=== PATIENT | male | born 1990 | race Caucasian/White ===

== ENCOUNTER 2016-07-16 22:04 | Inpatient (IN) | payer MEDICAID ==
[~2016-07-16] VITALS: Ht 160 cm; Wt 64.9 kg
[~2016-07-16 22:04] MED LIST: AMBIEN10 MG PO; CELLCEPT250 MG PO; HYDROCODON-ACE1 EAC7 PO; KLONOPIN0.5 MG PO; NEPHRO-VITE RX1 TAB PO; NORVASC2.5 MG PO; OMEPRAZOLE20 M1 PO; PREDNISONE1 MG PO; PROGRAF0.5 M1 PO; RENAGEL800 MG PO; TEMAZEPAM30 MG PO; TUMS500 MG PO; VIBRAMYCIN 100100 MG PO
[2016-07-17] VITALS (29 sets, daily range): BP systolic 134–179; BP diastolic 76–128; Ht 160 cm; Wt 64.9 kg
[2016-07-17 00:31] LABS: BASOPHILS 0.1 % (0.0-2.0); EOSINOPHILS 0.5 % (0-7); HEMATOCRIT 20.9 % (42.0-54.0); IMMATURE GRANULOCYTES 0.2 % (0-5); LYMPHOCYTES 13.5 % (15-50); MCHC 32.1 g/dL (31.0-37.0); MCV 87.4 fL (80.0-100.0); MEAN PLATELET VOLUME 10.2 fL (7.4-10.4); NEUTROPHILS 81.7 % (40-80); RBC 2.39 10x6/uL (4.20-6.10); RDW 17.8 % (11.5-14.5); WBC 13.8 10x3/uL (4.8-10.8)
[2016-07-17 00:32] LABS: PLATELET COUNT 71 10x3/uL (130-400)
[2016-07-17 00:34] LABS: HEMOGLOBIN 6.7 g/dL (13.5-17.5)
[2016-07-17 00:49] LABS: BILIRUBIN - TOTAL 0.49 mg/dL (0.2-1.3); CREATININE - SERUM 19.8 mg/dL (0.6-1.3); PROTEIN - SERUM 6.2 g/dL (6.4-8.2)
[2016-07-17 00:54] LABS: INR 1.44 (0.85-1.17); PROTIME 17.5 SECONDS (11.6-15.0)
[2016-07-17 00:56] LABS: ANION GAP 38.7 mmol/L (8-16); CARBON DIOXIDE 5.7 mmol/L (21.0-32.0); POTASSIUM - SERUM 7.4 mmol/L (3.5-5.1)
[2016-07-17] MEDS ORDERED: NEURONTIN 300300 MG PO (01:08)
[2016-07-17 01:09] LABS: PLATELET ESTIMATE DECREASED; PLATELET MORPHOLOGY NORMAL PLT MORPH
[2016-07-17] MEDS ORDERED: DESERYL100 MG PO (01:10)
[2016-07-17] MEDS ORDERED: BUTALB-APAP-CA1 EACH PO (01:11)
--- NOTE | 2016-07-17 01:25 | NUR ---
PT RECIEVED. DR CATES AT BEDSIDE. NEW ORDERS RECIEVED. WILL ADM.
--- NOTE | 2016-07-17 02:10 | NUR ---
ASSISTED TO BEDSIDE COMMODE. 300 CC NOEL URINE NOTED.
--- NOTE | 2016-07-17 03:49 | NUR ---
DIALYSIS AT BEDSIDE.
--- NOTE | 2016-07-17 07:15 | NUR ---
REPORT FROM HD NURSE. REMOVED 2960 CC.
[2016-07-17 08:56] LABS: BASOPHILS 0.1 % (0.0-2.0); EOSINOPHILS 0.4 % (0-7); IMMATURE GRANULOCYTES 0.2 % (0-5); MCH 28.1 pg (26.0-34.0); MCHC 33.3 g/dL (31.0-37.0); MEAN PLATELET VOLUME 9.6 fL (7.4-10.4); MONOCYTES 9.4 % (2-11); NEUTROPHILS 75.9 % (40-80); PLATELET COUNT 73 10x3/uL (130-400); RDW 16.7 % (11.5-14.5)
[2016-07-17 09:00] LABS: HEMATOCRIT 29.1 % (42.0-54.0); HEMOGLOBIN 9.7 g/dL (13.5-17.5); MCV 84.3 fL (80.0-100.0); RBC 3.45 10x6/uL (4.20-6.10); WBC 10.1 10x3/uL (4.8-10.8)
[2016-07-17 09:29] LABS: CALCIUM 9.4 mg/dL (8.5-10.1); VANCOMYCIN - RANDOM 2.1 ug/mL (10.0-20.0)
[2016-07-17 09:31] LABS: CREATININE - SERUM 9.5 mg/dL (0.6-1.3)
[2016-07-17 09:34] LABS: ANION GAP 26.3 mmol/L (8-16); CARBON DIOXIDE 19.5 mmol/L (21.0-32.0)
[2016-07-17 09:35] LABS: POTASSIUM - SERUM 2.8 mmol/L (3.5-5.1)
--- NOTE | 2016-07-17 10:46 | NUR ---
LABS CALLED TO [facility]. ORDERS RECIEVED AND CARRIED OUT. SEE MAR.
--- NOTE | 2016-07-17 11:20 | NUR ---
PT STATES HE WANTS TO LEAVE AMA BECAUSE HE IS NOT GETTING HIS KLONOPIN. STATES HE WANTS TO TRANSFER TO [facility] OR LEAVE AMA. INFORMED ON RISKS OF LEAVING AMA INCLUDING . INFORMED THAT TRANSFER TO [facility] WOULD BE A LATERAL TRANSFER AND EMS SERVICES ARE REQUIRED FOR TRANSFER AND THE FEE WOULD NEED TO BE PAID UP FRONT AND OUT OF POCKET. ENCOURAGED PT TO STAY. UPDATED PT ON CURRENT PLAN OF CARE. CASE MANAGEMENT AT BEDSIDE FOR CONVERSATION. WILL GIVE PT TIME TO DISCUSS WITH HIS FAMILY OPTIONS FOR FURTHER TREATMENT.
--- NOTE | 2016-07-17 11:31 | NUR ---
Is the patient Alert and Oriented? Yes 0 * How many steps to enter\exit or inside your home? 15 0 * PCP DOESN'T HAVE ONE. SEE'S DR. BURRELL AT [facility] 0 * Pharmacy [facility] [address] * Preadmission Environment Home with Family 0 * ADLs Independent 0 * Equipment None 0 * List name and contact numbers for known caregivers / representatives who currently or will assist patient after discharge: GRANDFATHER: [phone] GRANDMOTHER: [phone] 0 * Community resources currently utilized None 0 * Please name any agencies selected above. PATIENT RECEIVES DIALYSIS AT [facility] M/W/F 0 * Additional services required to return to the preadmission environment? No 0 * Can the patient safely return to the preadmission environment? Yes 0 * Has this patient been hospitalized within the prior 30 days at any hospital? No PATIENT IS AWAKE AND ALERT. HE STATES HE LIVES AT HOME WITH HIS GRANDPARENTS, CHANTELL AND JESSICA BELLAMY. PATIENT STATES HE DOES NOT HAVE A PCP BUT HE SEES DR. BURRELL AT [facility] FOR DIALYSIS. PATIENT GETS HIS MEDS AT [email or web address] [address]. PATIENT DENIES USE OF ANY EQUIPMENT AND DENIES EVER HAVING HOME HEALTH. HE STATES THERE ARE ABOUT 15 STEPS TO ENTER HIS HOME. NO DISCHARGE NEEDS IDENTIFIED AT THIS TIME.
--- NOTE | 2016-07-17 11:40 | NUR ---
JOB SERVICE CONSULTANT AT BEDSIDE DISCUSSING CARE OPTIONS. INFORMING PT THAT LEAVING IS AGAINST MEDICAL ADVICE AND THE EFFECTS COULD BE DETRIMENTAL TO LIFE. PT STATES THAT HE WILL DISCUSS HIS CHOICE WITH HIS GRANDPARENTS.
--- NOTE | 2016-07-17 11:42 | NUR ---
PATIENT PATHWAYS Patient is from [facility] ([facility]) on a Wednesday/Wednesday/Wednesday 2nd shift (Approx 10:30) Records frowarded to the patient's home unit for discharge. Patient is currently in the ICU. Will cont to monitor for further orders. MILLY PRL
--- NOTE | 2016-07-17 12:13 | NUR ---
SPOKE AT LENGTH WITH PT'S GRANDPARENTS WHO STATE "HE ISN'T LEAVING". GRANDFATHER STATES PT OFTEN JUST "TRIES TO USE LEVERAGE" AND IF WE WOULD JUST "GIVE HIM THAT LORAZEPAM OR CHRONOPIN HE WOULD STOP BEING LIKE THAT" STATES THEY HAVE "NEVER MET OR LAID EYES ON DR. BURRELL" AND THAT HE "IS JUST THE KIDNEY DOCTOR IN NAME" AND "IT SHOULDN'T BE UP TO HIM ON WHAT MEDICINES' THE PT RECIEVES. DR. FLAHERTY NOW AT BEDSIDE SPEAKING WITH PT AND FAMILY.
--- NOTE | 2016-07-17 16:16 | NUR ---
FAMILY NOTIFIED TO BE HERE AT [address] TO SPEAK [address] ARTHUR. INFORMED THEY MAY NEED TO WAIT SOME TIME AT THAT TIME FOR THE VERBALIZES UNDERSTANDING.
--- NOTE | 2016-07-17 18:00 | NUR ---
CARDINE DRIP STARTED PER ORDER.
--- NOTE | 2016-07-17 23:20 | NUR ---
1919-REPORT RECVD. CARE ASSUMED. INITIAL ASSMNT COMPLETED. SEE FLOWSHEET FOR ALL FINDINGS. AWAKE AND AOX4. RESP UNLABORED. O2 AT 2 LPM NC. LUNGS CTA. AFEBRILE. ST ON THE MONITOR. RIGHT GHEST HEMESPLIT CDI. ANURIC. UP TO BSC AD JOAQUINA. BSA X4. HAVING BM. HOB UP. C/L IN REACH. CONT CURRENT POC. 2100- HS MEDS GIVEN. FAMILY AT BEDSIDE. UPDATE GIVEN. VSS. CARDENE GTT FOR HTN IN USE. 2319- REASSESSMENT COMPLETED. SEE FLOWSHEET FOR ALL FINDINGS. NO SIG CHANGES. RESTING WITH NO DISRTRESS. CARDENE GTT IN USE FOR HTN. VSS. ST ON THE MONITOR. AFEBRILE. HOB UP. C/L IN REACH. CONT CURRENT POC.
[2016-07-18] VITALS (65 sets, daily range): BP systolic 125–169; BP diastolic 71–112
--- NOTE | 2016-07-18 01:35 | NUR ---
UP TO BSC AD JOAQUINA. PRN APAP GIVEN FOR HEADACHE. VSS. REMAINS ON CARDENE GTT TITRATION. CONT POC.
--- NOTE | 2016-07-18 03:20 | NUR ---
REASSESSMENT COMPLETED. SEE FLOWSHEET FOR ALL FINDINGS. AWAKE AND AOX4. RESP UNLABORED. O2 AT 2 LPM NC. LUNGS CTA. AFEBRILE. ST ON THE MONITOR. RIGHT GHEST HEMESPLIT CDI. ANURIC. UP TO BSC AD JOAQUINA. BSA X4. PRN APAP AND BUPRINEX IN USE FOR PAIN CONTROL. HOB UP. C/L IN REACH. CONT CURRENT POC.
--- NOTE | 2016-07-18 05:00 | NUR ---
EYES CLOSED. VSS. ST ON THE MONIOTR. VSS. HOB UP. C/L IN REACH. CONT CURRENT POC.
[2016-07-18 05:42] LABS: BASOPHILS 0.5 % (0.0-2.0); EOSINOPHILS 2.6 % (0-7); HEMATOCRIT 28.7 % (42.0-54.0); HEMOGLOBIN 9.7 g/dL (13.5-17.5); IMMATURE GRANULOCYTES 0.2 % (0-5); LYMPHOCYTES 28.9 % (15-50); MCH 28.4 pg (26.0-34.0); MCHC 33.8 g/dL (31.0-37.0); MCV 83.9 fL (80.0-100.0); MEAN PLATELET VOLUME 9.6 fL (7.4-10.4); MONOCYTES 6.6 % (2-11); NEUTROPHILS 61.2 % (40-80); PLATELET COUNT 77 10x3/uL (130-400); RBC 3.42 10x6/uL (4.20-6.10); RDW 16.9 % (11.5-14.5); WBC 6.5 10x3/uL (4.8-10.8)
[2016-07-18 05:52] LABS: PROTIME 14.6 SECONDS (11.6-15.0)
[2016-07-18 05:56] LABS: INR 1.15 (0.85-1.17)
[2016-07-18 06:05] LABS: ALBUMIN 2.5 g/dL (3.4-5.0); ANION GAP 24.8 mmol/L (8-16); BILIRUBIN - DIRECT 0.12 mg/dL (0.00-0.30); BILIRUBIN - INDIRECT 0.39 mg/dL (0.00-1.00); BILIRUBIN - TOTAL 0.51 mg/dL (0.2-1.3); CALCIUM 8.5 mg/dL (8.5-10.1); PROTEIN - SERUM 6.3 g/dL (6.4-8.2)
[2016-07-18 06:06] LABS: POTASSIUM - SERUM 3.8 mmol/L (3.5-5.1)
--- NOTE | 2016-07-18 07:00 | NUR ---
REPORT RECEIVED, PATIENT IN RIGHT LATERAL POSITION, SNORING. ASSESSMENT COMPLETED AT THIS TIME. PATIENT DID OPEN EYES AND NOD TO THIS NURSE DURING ASSESSMENT, BUT NO VERBAL COMMUNICATIONS WAS MADE. HE QUICKLY DOZED BACK OFF. NO VISUAL CUES OF DISTRESS NOTED.
--- NOTE | 2016-07-18 08:07 | NUR ---
DECREASED CARDENE DRIP TO 2.5 MCG SECONDARY TO PATIENT STARTING DIALYSIS. WILL MONITOR AND ADJUST NEEDED.
--- NOTE | 2016-07-18 10:42 | NUR ---
DIALYSIS IN PROCESS. B/P 127/85. CARDENE DRIP STOPPED AT THIS TIME. WILL CONTINUE TO MONITOR.
--- NOTE | 2016-07-18 11:47 | NUR ---
PTS B/P 159/114, CARDENE RESTARTED PER TITRATE ORDERS.
--- NOTE | 2016-07-18 12:42 | NUR ---
DIALYSIS COMPLETED. 3 LITERS WERE PULLED OFF. CYCLED 65.2 LITERS OF BLOOD. PATIENT TOLERATED WELL. PATIENT IS QUESTIONING TO WHEN HE CAN GO TO THE FLOOR. IT WAS EXPLAINED THAT UNTIL WE WERE ABLE TO GET HIS BLOOD PRESSURE UNDER CONTROL TO WHERE WE COULD STOP THE DRIP, HE WOULD HAVE TO REMAIN IN THE ICU. HE STATED THAT HE UNDERSTANDS, BUT WANTS TO BE ABLE TO HAVE HIS FRIENDS AROUND HIM FOR MORE THAT WHAT IS ALLOWED DURING VISITATIONS. HE ALSO STATED THAT THEIR WORK SCHEDULES DON'T ALLOW THEM TO COME AT VISITATION HOURS AND HE DID NOT THINK THEY WOULD WANT TO WAIT AROUND. IT WAS EXPLAINED THAT IF THE UNIT WAS QUIET, AND HIS NURSE WASN'T BUSY, SHE/HE MAY BE WILLING TO LET THEM IN FOR A SHORT VISITATION (10 MINUTES OR LESS). HE ROLLED HIS EYES AND TISKED, BUT SAID "OK".
--- NOTE | 2016-07-18 14:10 | NUR ---
PATIENT C/O ITCHING AND NAUSEA. SPOKE WITH DR ARTHUR. NEW ORDERS RECEIVED.
--- NOTE | 2016-07-18 14:23 | NUR ---
ZOFRAN AND BENADRYL GIVEN PER PRN ORDERS FOR NAUSEA AND ITCHING.
--- NOTE | 2016-07-18 15:27 | NUR ---
DR ARTHUR PAGED, PATIENT CONTINUES TO CLAW HIMSELF, SAID THE BENADRYL IS NOT WORKING AT ALL. DR ARTHUR WALKED ONTO THE FLOOR. ORDER RECEIVED FOR A ONE TIME ORDER FOR ANOTHER 25MG OF BENADRYL.
--- NOTE | 2016-07-18 15:29 | NUR ---
BATH WAS OFFERED TO PERHAPS HELP WITH PATIENTS ITCHING, PATIENT REFUSED.
--- NOTE | 2016-07-18 18:53 | NUR ---
PATIENT HAS WIPED DOWN WITH BATH WIPES, DOES NOT WANT TO DO ANY MORE THAN THAT. LINENS NOT CHANGED PER HIS REQUEST.
--- NOTE | 2016-07-18 23:20 | NUR ---
1919-REPORT RECVD. CARE ASSUMED. INITIAL ASSMNT COMPLETED. SEE FLOWSHEET FOR ALL FINDINGS. AWAKE AND AOX4. RESP UNLABORED. SPO2 98% ON RA. LUNGS CTA. AFEBRILE. ST ON THE MONITOR. RIGHT GHEST HEMESPLIT CDI. ANURIC. UP TO BSC AD JOAQUINA. BSA X4. HAVING OCC LOOSE BM. HOB UP. C/L IN REACH. CONT CURRENT POC. 2100- HS MEDS GIVEN. FAMILY AT BEDSIDE. UPDATE GIVEN. VSS. CARDENE GTT FOR HTN WEANING IN PROGRESS. 2144- CARDENE GTT OFF AT THIS TIME. 2319- REASSESSMENT COMPLETED. SEE FLOWSHEET FOR ALL FINDINGS. NO SIG CHANGES. RESTING WITH NO DISRTRESS. VSS. ST ON THE MONITOR. B/P WITHIN PARAMETERS. SPO2 97% ON RA. LUNGS CTA. C/O INCREASING PAIN LEVEL AND ITCHING. WILL PROVIDE PRN MEDS. AFEBRILE. HOB UP. C/L IN REACH. CONT CURRENT POC.
[2016-07-19] VITALS (14 sets, daily range): BP systolic 128–187; BP diastolic 73–111
--- NOTE | 2016-07-19 01:15 | NUR ---
RESTING WITH NO DISTRESS. VSS. B/P WITHIN PARAMETERS. CONT CURRENT POC.
--- NOTE | 2016-07-19 03:15 | NUR ---
REASSESSMENT COMPLETED. SEE FLOWSHEET FOR ALL FINDINGS. RESTING WITH NO DISTRESS. REMAINS OFF CARDENE GTT. SR TO ST ON THE MONITOR. AFEBRILE. SPO2 97% ON RA. UP AD JOAQUINA. ANURIC. HOB UP. C/L IN REACH. CONT CURRENT POC.
[2016-07-19 05:37] LABS: BASOPHILS 0.2 % (0.0-2.0); EOSINOPHILS 2.4 % (0-7); HEMATOCRIT 29.5 % (42.0-54.0); HEMOGLOBIN 9.8 g/dL (13.5-17.5); IMMATURE GRANULOCYTES 0.2 % (0-5); LYMPHOCYTES 36.7 % (15-50); MCHC 33.2 g/dL (31.0-37.0); MCV 84.3 fL (80.0-100.0); MEAN PLATELET VOLUME 11.2 fL (7.4-10.4); MONOCYTES 13.6 % (2-11); NEUTROPHILS 46.9 % (40-80); RDW 16.6 % (11.5-14.5)
[2016-07-19 05:44] LABS: PLATELET COUNT 103 10x3/uL (130-400); WBC 4.1 10x3/uL (4.8-10.8)
[2016-07-19 05:55] LABS: ANION GAP 17.7 mmol/L (8-16); CALCIUM 8.4 mg/dL (8.5-10.1); POTASSIUM - SERUM 3.6 mmol/L (3.5-5.1)
[2016-07-19 05:58] LABS: CARBON DIOXIDE 24.9 mmol/L (21.0-32.0); CREATININE - SERUM 8.3 mg/dL (0.6-1.3)
--- NOTE | 2016-07-19 06:02 | NUR ---
VSS. C/O PAIN AND ITCHING. PRNS PROVIDED ORDERED. HOB UP. C/L IN REACH. CONT CURRENT POC.
--- NOTE | 2016-07-19 07:00 | NUR ---
REC'D CARE OF PT. A&O X3.
--- NOTE | 2016-07-19 10:33 | NUR ---
ORDERS REC'D TO TRANSFER TO FLOOR.
--- NOTE | 2016-07-19 12:39 | NUR ---
REPORT GAVE TO LICHA AND READY TO MOVE TO ROOM 2107.
--- NOTE | 2016-07-19 13:02 | NUR ---
TRANSPORTED TO ROOM 2108 VIA .
--- NOTE | 2016-07-19 13:19 | NUR ---
RECEIVED PT FROM ICU VIA WHEELCHAIR. PT IS ALERT AND ORIENTED. NO CO PAIN AT THIS TIME. CURRENTLY RECEIVEING BREATHING TREATMENT. NO OTHER NEEDS AT THIS TIME. [facility].
--- NOTE | 2016-07-19 14:34 | NUR ---
CHANGED PT'S DRESSING OVER HEMISPLIT AND DC'D ONE IV. PT HAD SHOWERED UPON REACHING FLOOR AND HAD NOT NOTIFIED STAFF TO COVER SITES.
--- NOTE | 2016-07-19 20:12 | NUR ---
RESUMED CARE OF PT, UP IN CHAIR RESPIRATIONS EVEN AND UNLABORED ON ROOM AIR. LEFT WRIST SALINE LOCKED. PLAN OF CARE DISCUSSED. CALL LIGHT IN REACH. WILL CONTINUE TO MONITOR. SEE NURSE ASSESSMENT.
[2016-07-20] VITALS: BP 157/87
[2016-07-20 04:00] VITALS: BP 153/90
--- NOTE | 2016-07-20 04:14 | NUR ---
IV REMOVED BY PT TO LEFT WRIST. RESTARTED TO RIGHT FOREARM TIMES 3 STICKS.
[2016-07-20 05:40] LABS: BASOPHILS 0.3 % (0.0-2.0); EOSINOPHILS 1.7 % (0-7); HEMOGLOBIN 10.5 g/dL (13.5-17.5); IMMATURE GRANULOCYTES 0.8 % (0-5); LYMPHOCYTES 38.4 % (15-50); MCH 28.2 pg (26.0-34.0); MCHC 32.8 g/dL (31.0-37.0); MCV 85.8 fL (80.0-100.0); MEAN PLATELET VOLUME 10.3 fL (7.4-10.4); MONOCYTES 11.5 % (2-11); NEUTROPHILS 47.3 % (40-80); RBC 3.73 10x6/uL (4.20-6.10); RDW 16.8 % (11.5-14.5)
--- NOTE | 2016-07-20 05:57 | NUR ---
NO CHANGES FROM PREVIOUS ASSESSMENT, CALL LIGHT IN REACH. WILL CONTINUE WITH PLAN OF CARE.
[2016-07-20 06:10] LABS: PLATELET COUNT 148 10x3/uL (130-400)
[2016-07-20 06:51] LABS: ANION GAP 25.8 mmol/L (8-16); CARBON DIOXIDE 19.9 mmol/L (21.0-32.0); POTASSIUM - SERUM 3.7 mmol/L (3.5-5.1)
[2016-07-20 08:00] VITALS: BP 159/97
--- NOTE | 2016-07-20 10:00 | NUR ---
ALERT AND ORIENTED X4. SITTING UP IN BED. RT CHEST HEMOSPLIT DRESSING OFF. REDRESS WITH CVL DRESSING. INITIATE PAIN MANAGEMENT. DENIES SOB. STUDENT NURSE IN ROOM. CONTINUE PLAN OF CARE. BED LOCKED AND LOW. CALL LIGHT IN REACH. TWO SIDERAILS UP.
[2016-07-20 12:00] VITALS: BP 160/88
[2016-07-20 16:00] VITALS: BP 151/106
[2016-07-20 20:00] VITALS: BP 149/89
--- NOTE | 2016-07-20 20:32 | NUR ---
PT AWAKE, ALERT, ORIENTED, REQUESTING HIS PRN BENADRY AND ZOFRAN. PT DID HAVE A MEAL THAT HIS GRANDPARENTS BROUGHT AFTER DIALYSIS. PT IS IN NO ACUTE DISTRESS AT THIS TIME. WILL CONTINUE TO MONITOR CLOSELY. PT IS SITTING IN BEDSIDE CHAIR AT THIS TIME.
[2016-07-21] VITALS: BP 137/92
[2016-07-21 04:00] VITALS: BP 160/107
[2016-07-21 05:12] LABS: BASOPHILS 0.5 % (0.0-2.0); EOSINOPHILS 1.4 % (0-7); HEMATOCRIT 28.2 % (42.0-54.0); HEMOGLOBIN 9.1 g/dL (13.5-17.5); IMMATURE GRANULOCYTES 0.7 % (0-5); LYMPHOCYTES 48.4 % (15-50); MCH 27.7 pg (26.0-34.0); MCHC 32.3 g/dL (31.0-37.0); MEAN PLATELET VOLUME 9.4 fL (7.4-10.4); MONOCYTES 15.6 % (2-11); NEUTROPHILS 33.4 % (40-80); PLATELET COUNT 136 10x3/uL (130-400); RBC 3.28 10x6/uL (4.20-6.10); RDW 16.5 % (11.5-14.5)
[2016-07-21 05:16] LABS: WBC 4.3 10x3/uL (4.8-10.8)
[2016-07-21 05:26] LABS: ANION GAP 20.5 mmol/L (8-16); CALCIUM 8.3 mg/dL (8.5-10.1); CARBON DIOXIDE 25.1 mmol/L (21.0-32.0); CREATININE - SERUM 8.4 mg/dL (0.6-1.3); PHOSPHOROUS 7.5 mg/dL (2.5-4.9); POTASSIUM - SERUM 3.6 mmol/L (3.5-5.1); VANCOMYCIN - RANDOM 7.6 ug/mL (10.0-20.0)
--- NOTE | 2016-07-21 05:48 | NUR ---
PT HAS BEEN AWAKE MOST OF THE SHIFT, ALERT, ORIENTED, PLEASANT, C/O GREAT PAIN IN LEGS IN WHICH HE STATES NEURONTIN DOES NOT HELP. WE DISCUSSED OTHER POSSIBLE OPTIONS AND HE AGREED TO SPEAK WITH HIS PHYSICIAN ABOUT IT. C/O CHRONIC ITCHING AND NAUSEA, DENIES ANY OTHER NEEDS. CONTINUE TO MONITOR CLOSELY.
[2016-07-21 05:57] LABS: APPEARANCE CLEAR (CLEAR); BILIRUBIN NEGATIVE (NEGATIVE); COLOR YELLOW (YELLOW); GLUCOSE 50 mg/dL (NEGATIVE); KETONE SMALL mg/dL (NEGATIVE); LEUKOCYTE ESTERASE NEGATIVE (NEGATIVE); NITRITE NEGATIVE (NEGATIVE); PROTEIN 2+ mg/dL (NEGATIVE); UROBILINOGEN NORMAL (NORMAL)
--- NOTE | 2016-07-21 06:00 | NUR ---
U/A COLLECTED AND SENT TO LAB
[2016-07-21 06:12] LABS: BACTERIA FEW /hpf (NONE SEEN); EPITHELIAL CELLS RARE /hpf (0-5); RED CELLS - URINE 0-5 /hpf (0-5); WHITE CELLS - URINE 0-5 /hpf (0-5)
[2016-07-21] MEDS ORDERED: AMBIEN5 MG PO (08:52)
[2016-07-21 08:53] VITALS: BP 157/99
[2016-07-21] MEDS ORDERED: TACROLIMUS ANHYD1 MG PO (09:38)
[2016-07-21] MEDS ORDERED: CELLCEPT250 MG PO (09:38)
[2016-07-21] MEDS ORDERED: LEVAQUIN250 MG PO (09:40)
[2016-07-21] MEDS ORDERED: HYDRALAZINE HC100 MG PO (09:40)
[2016-07-21] MEDS ORDERED: HYDROCODONE-APA1 TAB PO (09:42)
--- NOTE | 2016-07-21 11:45 | NUR ---
ALERT AND ORIENTED X4. SITTING UP IN CHAIR. DISCHARGE INSTRUCTIONS GIVEN VERBALLY AND WRITTEN. DISCHARGE PAPERS SIGNED ON CHART. DC RT FA IV TIP INTACT. GRANDPARENTS ARRIVE TO ROOM. ESCORT VIA WHEELCHAIR TO RIDE. REMAINS FREE FROM INJURY. RT CHEST HEMOSPLIT DRESSING CLEAN DRY INTACT.
--- NOTE | 2016-07-22 07:10 | DS ---
PATIENT:MANSI BELLAMY :89 MEDICAL RECORD: [id number] DISCHARGE SUMMARY ADMISSION DATE: 07/17/16 DISCHARGE DATE: 07/21/16 HISTORY OF PRESENT ILLNESS: Mr. Bellamy is a 25-year-old white male with end-stage renal disease due to chronic transplant rejection transferred here from [facility], is a very noncompliant patient, who has only sporadic dialysis treatments. He was here last month with staph abscess of his cheek and chest and has been on outpatient vancomycin at the dialysis unit. He has failed to keep his dialysis appointments over the last week and appears in the Emergency Room acutely ill, hyperkalemic and short of breath. The patient admitted for the above. HOSPITAL COURSE: The patient was emergently dialyzed and underwent a continued dialysis throughout his hospitalization. He initially had an infiltrate, possible pneumonia, begun on antibiotics for pulmonary and we will finish out his Levaquin orally. His last chest x-ray was clear post-dialysis. He was not given further vancomycin. His cultures were negative. I did continue to taper his transplant drugs, specifically his mycophenolate and Prograf. At the time of discharge, he was basically back to baseline and was otherwise stable. DISCHARGE DIAGNOSES: 1. Acute volume overload due to dialysis noncompliance. 2. Pneumonia, resolved. 3. End-stage renal disease with poor compliance. 4. Chronic transplant rejection. 5. Recent staphylococcal abscess. PLAN: The patient will be discharged today. He will be in dialysis tomorrow. He will continue his dialysis schedule. DISCHARGE MEDICATION: He will be discharged with Grover 5/325 #50. He will be on Ambien 5 mg p.r.n. at home, Klonopin 1 mg b.i.d. at home, Levaquin 250 daily times 5 days, Prograf 1 mg b.i.d., hydralazine 100 t.i.d. and mycophenolate 250 b.i.d., Nephro-Jackelyn 1 daily, prednisone 5 mg daily, Protonix 40 mg daily, Renagel 3 t.i.d. and amlodipine 5 mg b.i.d. TRANSINT:[id number] Voice Confirmation ID: [id number] DOCUMENT ID: [id number] BECK BURRELL MD at 0710 CC: [id number] DICTATION DATE: 07/21/16 0801 DIRECTOR ACUTE: 07/21/16 0838 DIS IN 07/21/16 [facility] [address] [id number]
--- NOTE | 2016-07-22 14:16 | EC ---
PATIENT:MANSI BELLAMY DATE OF SERVICE: 07/17/16 SEX: M MEDICAL RECORD: [id number] DATE OF : [birth year] LOCATION:D.M2 D.210 AGE OF PATIENT: 25 ADMISSION DATE: 07/17/16 REFERRING PHYSICIAN: INTERPRETING PHYSICIAN: MONIQUE ORDOÑEZ MD ECHOCARDIOGRAM REPORT ECHO CHARGES 4 ECHO COMPLETE CLINICAL DIAGNOSIS: SOB/ STAPH SEPSIS ECHOCARDIOGRAPHIC MEASUREMENTS (adult normal given) AC root (d.<3.7cm) 3.8 LV Septum d (<1.2 cm> 1.3 Valve Excursion 2.1 LV Septum (systole) 1.5 Left Atria (s.<4.0cm> 3.2 LVPW d(<1.2cm) 1.4 RV (d.<2.3cm) 3.6 LVPW (sytole) 1.5 LV diastole(<5.6CM) 5.8 MV E-F(>70mm/sec) LV systole 4.2 LVOT Diameter 2.3 MV exc.(>10mm) Est.ejection fraction (50-75%) Pericardial Effusion N DOPPLER: LVIT A 141 E 104 LA RVSP 27 LVOT 151 AOP1/2T Asc. Ao 201 RVOT 119 RA PA 183 AV Gradient Peak 16.14 AV Mean 9.23 AV Area 2.9 MV Gradient Peak 7.93 MV Mean 4.0 MV Area COMMENTS: Bio Medical Technician: Leticia DEUTSCH Press Operator [employer]:1 Dr. Kenny TAPE# PACS DATE OF SERVICE: 07/17/2016 Adequate 2D echo, color flow and spectral Doppler, and M-mode. Borderline LVH. LV internal dimensions are normal. Wall motion is normal. EF is greater than 55%. Aortic valve is tricuspid. No evidence of stenosis by Doppler interrogation. The left atrium is normal at 3.2 cm. Mitral valve shows no prolapse. Trace MR only. Right-sided chamber is grossly normal. Trace TR only. TRANSINT:[id number] Voice Confirmation ID: [id number] DOCUMENT ID: [id number] ECHOCARDIOGRAM REPORT [id number] MANSI BELLAMY 07/22/2016 Edited to correct date of service and fill in blank, dmm. MONIQUE ORDOÑEZ MD at 1416 CC: [id number] DICTATION DATE: 07/19/16 1055 SENIOR BRAND MANAGER: 07/19/162008 DIS IN 07/21/16 [id number] [id number]
== END 2016-07-21 11:48 | disposition home or self-care (01) | DRG 640 ==
LOC: D.ER 22:04 → D.ICU 07-17 00:32 → D.M2 07-19 13:18
PROVIDERS: Family Medicine; Internal Medicine Nephrology; ADMIT Internal Medicine Nephrology
PROC: 5A1D60Z (ICD-10-PCS; principal; 2016-07-17)
DX: E87.5 Hyperkalemia (principal); N18.6 End stage renal disease; J18.9 Pneumonia, unspecified organism; I12.0 Hypertensive chronic kidney disease with stage 5 chronic kidney disease or end stage renal disease; T86.12 Kidney transplant failure; Z99.2 Dependence on renal dialysis; Z91.15 Patient's noncompliance with renal dialysis; H54.7 Unspecified visual loss; D63.1 Anemia in chronic kidney disease; K21.9 Gastro-esophageal reflux disease without esophagitis; E87.2 Acidosis; R04.0 Epistaxis

== ENCOUNTER 2016-08-01 17:45 | Inpatient (IN) | payer MEDICAID ==
[2016-08-01] VITALS (7 sets, daily range): BP systolic 143–165; BP diastolic 90–106; BMI 26.8
[~2016-08-01] VITALS: Ht 160 cm; Wt 64.6 kg
[~2016-08-01 17:45] MED LIST changes: +AMBIEN5 MG PO; +BUTALB-APAP-CA1 EACH PO; +DESERYL100 MG PO; +HYDRALAZINE HC100 MG PO; +HYDROCODONE-APA1 TAB PO; +LEVAQUIN250 MG PO; +NEURONTIN 300300 MG PO; +TACROLIMUS ANHYD1 MG PO
[2016-08-01 18:26] LABS: ALBUMIN 3.3 g/dL (3.4-5.0); ALKALINE PHOSPHATASE 57 U/L (46-116); ALT (SGPT) 19 U/L (10-68); CALC OSMOLALITY 283 mosm/kg (275-300); CALCIUM 7.2 mg/dL (8.5-10.1); CARBON DIOXIDE 24.1 mmol/L (21.0-32.0); CHLORIDE - SERUM 96 mmol/L (98-107); CREATININE - SERUM 9.3 mg/dL (0.6-1.3); GLUCOSE 95 mg/dL (74-106); PROTEIN - SERUM 7.2 g/dL (6.4-8.2); SODIUM 135 mmol/L (136-145); UREA NITROGEN 53 mg/dL (7-18); eGFR NON AFRICAN AMERICAN 7 mL/min (90-120)
[2016-08-01 18:27] LABS: POTASSIUM - SERUM 6.6 mmol/L (3.5-5.1)
[2016-08-01 18:49] LABS: ALCOHOL - BLOOD (MEDICAL) < 3.0 mg/dL (0.0-10.0)
[2016-08-01 19:22] LABS: BASOPHILS 0.7 % (0.0-2.0); EOSINOPHILS 3.6 % (0-7); HEMATOCRIT 28.5 % (42.0-54.0); HEMOGLOBIN 8.9 g/dL (13.5-17.5); IMMATURE GRANULOCYTES 0.2 % (0-5); LYMPHOCYTES 31.2 % (15-50); MCH 28.7 pg (26.0-34.0); MCHC 31.2 g/dL (31.0-37.0); MCV 91.9 fL (80.0-100.0); MEAN PLATELET VOLUME 10.7 fL (7.4-10.4); MONOCYTES 14.7 % (2-11); NEUTROPHILS 49.6 % (40-80); PLATELET COUNT 198 10x3/uL (130-400); RDW 18.9 % (11.5-14.5); WBC 5.9 10x3/uL (4.8-10.8)
--- NOTE | 2016-08-01 20:45 | NUR ---
RECEIVED PATIENT FROM ER VIA WHEELCHAIR, PATIENT ABLE TO WALK TO BED. PATIENT IS ALERT AND ORIENTED X4. PIV IN LAC SL, SITE IS CDI AND WITHOUT REDNESS. PATIENT HAS SUPERFICIAL SCRATCHES ON BILATERAL ARMS AND LEFT FOOT. SEE ADMIT ASSESSMENT FOR MORE DETAILS. VSS, WILL MONITOR.
--- NOTE | 2016-08-01 21:30 | NUR ---
PATIENT UP TO BEDSIDE COMMODE, HAD LARGE LIGHT BROWN, SOFT BM. BACK TO BED AND REPOSISTIONED FOR COMFORT.
--- NOTE | 2016-08-01 21:45 | NUR ---
DIALYSIS NURSE IN ROOM AND DIALYSIS BEGAN, VSS. PATIENT REQUESTS SOMETHING TO EAT, SOFIYA TELLO GIVEN.
[2016-08-02] VITALS (21 sets, daily range): BP systolic 108–169; BP diastolic 66–136; Ht 160 cm; Wt 64.6 kg
--- NOTE | 2016-08-02 | NUR ---
DIALYSIS COMPLETE, PATIENT TOLERATED WELL. VSS.
--- NOTE | 2016-08-02 01:00 | NUR ---
PATIENT RESTING WITH EYES CLOSED, VSS, WILL CONTINUE TO MONITOR.
--- NOTE | 2016-08-02 02:30 | NUR ---
PATIENT REQUESTS PRN PAIN MEDICATION FOR GENERALIZED CHRONIC PAIN. MED GIVEN. WILL MONITOR.
--- NOTE | 2016-08-02 03:00 | NUR ---
REASSESSMENT COMPLETE, NO CHANGES.
[2016-08-02 04:51] LABS: BASOPHILS 0.2 % (0.0-2.0); EOSINOPHILS 2.5 % (0-7); HEMOGLOBIN 8.3 g/dL (13.5-17.5); IMMATURE GRANULOCYTES 0.2 % (0-5); LYMPHOCYTES 43.2 % (15-50); MCH 29.2 pg (26.0-34.0); MCHC 31.9 g/dL (31.0-37.0); MCV 91.5 fL (80.0-100.0); MEAN PLATELET VOLUME 10.4 fL (7.4-10.4); NEUTROPHILS 36.9 % (40-80); PLATELET COUNT 170 10x3/uL (130-400); RBC 2.84 10x6/uL (4.20-6.10); RDW 18.7 % (11.5-14.5); WBC 4.1 10x3/uL (4.8-10.8)
--- NOTE | 2016-08-02 05:00 | NUR ---
PATIENT UP IN CHAIR, DENIES NEED AT THIS TIME. VSS.
[2016-08-02 05:08] LABS: CALCIUM 7.7 mg/dL (8.5-10.1); CARBON DIOXIDE 26.1 mmol/L (21.0-32.0); CREATININE - SERUM 8.1 mg/dL (0.6-1.3)
[2016-08-02 05:12] LABS: POTASSIUM - SERUM 5.1 mmol/L (3.5-5.1)
--- NOTE | 2016-08-02 08:41 | NUR ---
0700 received pt lying in bed eyes closed. no distress noted, vss on monior. no complaints. lungs clear 02 sat 95% on room air. breakfast given, menu completed. 0830 am meds given, renal visual specialist in unit to round.
--- NOTE | 2016-08-02 08:54 | NUR ---
0863 renal hvac r instructor consulted [facility] and phone called placed. awaiting visit.
--- NOTE | 2016-08-02 19:30 | NUR ---
REPORT RECIEVED, SHIFT ASSESSMENT COMPLETE, PT IS ALERT AND ORIENTED, ON RA WITH 98% O2 SAT, LUNGS CLEAR IN ALL LOBES, S1S2, CM-NSR, PATENT RIGHT CHEST HEME SPLIT, PAETNT LEFT A/C S/L, ABDOMEN IS SOFT AND ROUND WITH ACTIVE BS, URINAL AT BEDSIDE, ALL PPP, VSS, CALL LIGHT IN REACH
--- NOTE | 2016-08-02 21:20 | NUR ---
FAMILY AT BEDSIDE, UPDATE GIVEN,
--- NOTE | 2016-08-02 23:30 | NUR ---
REASSESSMENT COMPLETE, NO CHANGES NOTED, PT AWAKE AT THIS TIME, C/O OF ITCHING, DR.HEIPLE COMBS
[2016-08-03] VITALS (16 sets, daily range): BP systolic 121–152; BP diastolic 73–113
[2016-08-03 00:23] LABS: APPEARANCE HAZY (CLEAR); BILIRUBIN NEGATIVE (NEGATIVE); COLOR YELLOW (YELLOW); GLUCOSE 50 mg/dL (NEGATIVE); KETONE NEGATIVE (NEGATIVE); LEUKOCYTE ESTERASE NEGATIVE (NEGATIVE); NITRITE NEGATIVE (NEGATIVE); PH 7.5 (5.0-6.0); PROTEIN 2+ mg/dL (NEGATIVE); SPECIFIC GRAVITY 1.005 (1.005-1.020); UROBILINOGEN NORMAL (NORMAL)
[2016-08-03 00:33] LABS: UDS - AMPHET NEGATIVE QUAL (NEGATIVE); UDS - BARB POSITIVE QUAL (NEGATIVE); UDS - BENZO NEGATIVE QUAL (NEGATIVE); UDS - COCAINE NEGATIVE QUAL (NEGATIVE); UDS - METH NEGATIVE QUAL (NEGATIVE); UDS - OPIATE POSITIVE QUAL (NEGATIVE); UDS - PCP NEGATIVE QUAL (NEGATIVE); UDS - THC NEGATIVE QUAL (NEGATIVE)
[2016-08-03 02:07] LABS: BACTERIA MODERATE /hpf (NONE SEEN); EPITHELIAL CELLS 0-5 /hpf (0-5); GRANULAR CAST OCC /lpf (NONE SEEN); HYALINE CAST 0-5 /lpf (NONE SEEN)
--- NOTE | 2016-08-03 03:04 | NUR ---
PT RESTING AT THIS TIME, NO NEEDS NOTED, WILL CON'T TO MONITOR
[2016-08-03 04:08] LABS: BASOPHILS 0.8 % (0.0-2.0); EOSINOPHILS 2.9 % (0-7); HEMATOCRIT 25.8 % (42.0-54.0); HEMOGLOBIN 8.1 g/dL (13.5-17.5); IMMATURE GRANULOCYTES 0.3 % (0-5); LYMPHOCYTES 40.2 % (15-50); MCH 28.9 pg (26.0-34.0); MCHC 31.4 g/dL (31.0-37.0); MCV 92.1 fL (80.0-100.0); MEAN PLATELET VOLUME 9.4 fL (7.4-10.4); MONOCYTES 15.4 % (2-11); NEUTROPHILS 40.4 % (40-80); PLATELET COUNT 185 10x3/uL (130-400); RDW 18.2 % (11.5-14.5); WBC 3.8 10x3/uL (4.8-10.8)
[2016-08-03 04:27] LABS: ALBUMIN 2.9 g/dL (3.4-5.0); ANION GAP 22.3 mmol/L (8-16); BILIRUBIN - TOTAL 0.4 mg/dL (0.2-1.3); CALCIUM 7.8 mg/dL (8.5-10.1); CARBON DIOXIDE 21.3 mmol/L (21.0-32.0); MAGNESIUM - SERUM 2.2 mg/dL (1.8-2.4); POTASSIUM - SERUM 4.6 mmol/L (3.5-5.1); PROTEIN - SERUM 6.7 g/dL (6.4-8.2)
[2016-08-03 04:56] LABS: PHOSPHOROUS 12.4 mg/dL (2.5-4.9)
--- NOTE | 2016-08-03 05:20 | NUR ---
PT RESTING AT THIS TIME, NO NEEDS NOTED,
--- NOTE | 2016-08-03 10:08 | NUR ---
Nutrition follow-up: Diet: Renal PO intkae 100% of last 3 meals Labs: PO4 12.4 Wt: 142# +BM PO intake is good at this time RDN following.
--- NOTE | 2016-08-03 11:34 | NUR ---
0800 AM ASSESMENT IS COMPLETE PT IS AWAKE AND BREAKFAST IS SERVED..FEEDING SELF.. PT IS WITHOUT C/O .. THERE IS A PIV IN THE LEFT AC SALINE LOCKED AND THERE IS A HEMASPLIT DIALYSIS CATH IN THE RIGHT SUBCLAVIAN.. 0900 WITHOUT VISITOR AT THIS TIME.. 1000 DIALYSIS SETTING UP EQUIPMENT FOR DIALYSIS AT THE BEDSIDE.. 1100 PT IS QUESTIONING WETABATHA THE PSYCHE DR WILL BE IN TO EVALUATE HIM.. HE VOICES AT THIS TIME THAT HE IS EXPECTING TO GO HOME AFTER THE PSYCHE DR SEES HIM.. 1130 DIALYSIS CONTINUES..
--- NOTE | 2016-08-03 12:57 | NUR ---
1200 [facility] VISITOR .. DIALYSIS CONITNUES// LUNCH TRAY IS SERVED TO THE PT PT STATES HE WILL EAT LATER..
--- NOTE | 2016-08-03 16:29 | NUR ---
1330 DIALYSIS COMPLETE PT IS OOB INTO CHAIR.. EATING LUNCH .. DR IZAGUIRRE IN TO SEE PT UPDATE GIVEN .. STATES THAT IT IS OK FOR HIM TO DC HOME WITH FOLLOW UP OP PSYCHE AFTER DR SALEH SEES AND KOLE PT..
--- NOTE | 2016-08-03 16:32 | NUR ---
1400 DR SALEH IN TO SEE PT.. .. STATES THAT FROM HIS STANDPOINT PT CAN DC HOME WITH OP FOLLOWUP.. HE WILL DICTATE NOTE... 1500 WITHOUT VISITORS AND PT REMAINS OOB IN THE CHAIR.. [address] SALEH NOTE .. PT IS AWAKE AND ON HIS CELL PHONE..
--- NOTE | 2016-08-03 19:30 | NUR ---
REPORT RECIEVED, SHIFT ASSESSMENT COMPLETE, PT IS ALERT AND ORIENTED, ON RA WITH 97% O2 SAT. LUNGS CLEAR IN ALL LOBES, S1S2, CM-NSR. PATENT LEFT A/C S/L, PATENT RIGHT CHEST HEME SPLIT, ABDOMEN IS SOFT AND ROUND WITH ACTIVE BS, URINAL AT BEDSIDE, ALL PPP, VSS, CALL LIGHT IN REACH
--- NOTE | 2016-08-03 21:00 | NUR ---
FAMILY AT BEDSIDE, UPDATE GIVEN
--- NOTE | 2016-08-03 23:09 | NUR ---
REASSESSMENT COMPLETE, NO CHANGES NOTED, PT RESTING AT THIS TIME, VSS, CALL LIGHT IN REACH
--- NOTE | 2016-08-04 01:13 | NUR ---
NO NEEDS NOTED AT THIS TIME, WILL CON'T TO MONITOR
[2016-08-04 03:00] VITALS: BP 115/82
--- NOTE | 2016-08-04 03:05 | NUR ---
REASSESSMENT COMPLETE, NO CHANGES NOTED, PT RESTING AT THIS TIME, NO NEEDS NOTED, WILL CON'T TO MONITOR
--- NOTE | 2016-08-04 05:05 | NUR ---
NO NEEDS NOTED AT THIS TIME, WILL CON'T TO MONITOR
[2016-08-04 07:30] VITALS: BP 134/85
--- NOTE | 2016-08-04 08:14 | NUR ---
0800 AM ASSESMENT IS COMPLETE .. DR IZAGUIRRE IN TO SEE PT AND DISCHARGE ORDERS ARE RECIEVED.. PT IS DRESSING SELF AT THIS TIME AND GETTING SELF READY TO LEAVE.. PAPERWORK IS COMPLETE AND SIGNED BY THE PT .. INSTRUCTIONS GIVEN TO PT BY NURSE AND CASE MANAGMENT VIVIAN DOSHI TO GO TO [facility] THIS AM FOR NEEDED COUNSELING.. PT AGREES TO DO SO AND STATES HIS UNDERSTANDING.. 0815 MEDS ARE TAKEN BY PT AND SHOSHANA FRANCO IS HERE TO TECHNOLOGIES DIVISION CHAIR PT AND TRANSPORT IN PVT CAR..DC AT THIS TIME..
--- NOTE | 2016-08-04 08:22 | NUR ---
PATIENT IS TO BE DISCHARGED HOME TODAY. HE IS TO FOLLOW UP WITH [facility]. PATIENT IS GIVEN THE PHONE NUMBER FOR THEM. HE IS TOLD THAT THEIR HOURS ARE 8-5 AND THAT THEY DO NOT MAKE APPOINTMENTS, JUST WALKIN. PATIENT STATES HE IS AWARE OF THIS. HE STATES HIS COUNSELOR AT [facility] HAD SPOKEN WITH HIM ABOUT GOING THERE AND HE STATES HE KNOWS WHERE IT IS AND WILL GO THERE TO BE SEEN. I SUGGESTED THAT HE GOT THIS AM TO GET ESTABLISHED AND START TO GET HELP. HE IS VERY PLEASANT AND AGREES TO GO. PATIENT'S GRANDFATHER IS HERE TO DRIVE HIM HOME. NO FURTHER DISCHARGE NEEDS VOICED AT THIS TIME.
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
--- NOTE | 2016-08-10 08:57 | DS ---
PATIENT:MANSI BELLAMY :89 MEDICAL RECORD: [id number] DISCHARGE SUMMARY ADMISSION DATE: 08/01/16 DISCHARGE DATE: 08/04/16 REASON FOR ADMISSION: Suicidal ideation with superficial cuts to his left arm, nothing significant. He was evaluated by Dr. Arroyo, is to be discharged today to [facility]. He will continue his dialysis Wednesday, Wednesday, Wednesday schedule. HOME MEDICATIONS: Unchanged. We had gone through his medications as far as his transplant meds and will need to get with Dr. Lane as he will continue his Epogen as an outpatient basis. He will continue his tacrolimus, we decreased it to 0.5 twice a day. I asked him to take half a tablet, but left the original prescription, so that he can keep that filled; clonidine 0.1 t.i.d., prednisone is now 2.5 a day instead of 5 a day, Renvela 2400 mg with meals t.i.d., mycophenolate is 250 b.i.d., hydralazine 100 three times a day, Klonopin 1 mg b.i.d., amlodipine 5 mg b.i.d., folic acid 1 tab daily, Protonix 40 a day. He has finished his Levaquin, but left it on his MAR; patiromer 8.4 grams daily, Ambien 5 mg at night and hydrocodone 5/325 q.8 hours only to have filled by Dr. Lane. He will follow up at dialysis as scheduled. Continue renal diet with fluid restriction. To follow up at [facility]. Greater than 30 minutes was spent on discharge as having to argue with him about his pain medications, other medications that he thinks that he needs and will need to get those to [facility]. He did have a positive guaiac or bright red blood per rectum, was not able to convince him of a GI consult, did mention that he was on transplant medications and although he is young at 25, malignancies are still an issue. PHYSICAL EXAMINATION: VITAL SIGNS: Blood pressure on discharge 115/82, 97% sat, 87 pulse. GENERAL: He is alert and oriented times 3. HEENT: Normocephalic, atraumatic. Clear nares. Clear throat. No JVD or thyromegaly. CHEST: Regular rhythm. S1 and S2. LUNGS: Grossly clear to auscultation bilaterally. ABDOMEN: Nontender in all 4 quadrants. LABORATORY DATA: He refused blood work today before his discharge, but his H&H was 8.1/25.8 yesterday, which was concerning and his carbon dioxide is 21.3, BUN 68 yesterday, we are not able to draw that today. Stable on discharge per psychiatry. A little concerned about his hemoglobin, but we will go ahead and discharge him to home. He continues with poor decision making. Discharge to home. TRANSINT:[id number] Voice Confirmation ID: [id number] DOCUMENT ID: [id number] DISCHARGE SUMMARY REPORT [id number] MANSI BELLAMY, ELÍAS LIAO at 0857 CC: [id number] DICTATION DATE: 08/04/16711 WATER PROJECT MANAGER: 08/04/16 08 DIS IN 08/04/16 [id number] [place] [address]
== END 2016-08-04 08:15 | disposition home or self-care (01) | DRG 640 ==
LOC: D.ER 17:45 → D.ICU 19:33
PROVIDERS: Emergency Medicine; Internal Medicine Nephrology; ADMIT Internal Medicine Nephrology
PROC: 5A1D60Z (ICD-10-PCS; principal; 2016-08-01)
DX: E87.5 Hyperkalemia (principal); N18.6 End stage renal disease; I12.0 Hypertensive chronic kidney disease with stage 5 chronic kidney disease or end stage renal disease; Z94.0 Kidney transplant status; R45.851 Suicidal ideations; Z99.2 Dependence on renal dialysis; D63.1 Anemia in chronic kidney disease; R19.5 Other fecal abnormalities; F43.20 Adjustment disorder, unspecified; F60.2 Antisocial personality disorder; Z72.0 Tobacco use

== ENCOUNTER 2016-08-25 08:03 | Day surgery (SDC) | payer MEDICAID ==
[~2016-08-25] VITALS: Ht 160 cm; Wt 61.2 kg
[2016-08-25 08:57] VITALS: BP 160/104; Ht 160 cm; Wt 61.2 kg
[2016-08-25 09:03] LABS: BASOPHILS 0.2 % (0.0-2.0); EOSINOPHILS 5.2 % (0-7); HEMATOCRIT 28.1 % (42.0-54.0); HEMOGLOBIN 8.7 g/dL (13.5-17.5); MCH 30.3 pg (26.0-34.0); MCV 97.9 fL (80.0-100.0); MEAN PLATELET VOLUME 10.7 fL (7.4-10.4); MONOCYTES 12.4 % (2-11); NEUTROPHILS 57.2 % (40-80); PLATELET COUNT 157 10x3/uL (130-400); RBC 2.87 10x6/uL (4.20-6.10); RDW 18.9 % (11.5-14.5); WBC 5.4 10x3/uL (4.8-10.8)
[2016-08-25 09:14] LABS: ANION GAP 26.2 mmol/L (8-16); CALCIUM 7.4 mg/dL (8.5-10.1); CARBON DIOXIDE 19.5 mmol/L (21.0-32.0); CREATININE - SERUM 11.8 mg/dL (0.6-1.3); POTASSIUM - SERUM 5.7 mmol/L (3.5-5.1)
[2016-08-25 09:20] LABS: INR 1.18 (0.85-1.17); PROTIME 14.9 SECONDS (11.6-15.0)
[2016-08-25 09:36] LABS: APTT 198.7 SECONDS (22.8-39.4)
--- NOTE | 2016-08-25 11:45 | NUR ---
1145 UPDATED FAMILY ON PROGRESS.
--- NOTE | 2016-08-25 12:53 | NUR ---
UPDATED FAMILY ON PROGRESS SUGGESTED THEY GET LUNCH AND I WOULD GIVE THEM A CALL IN THE NEXT HOUR WITH UPDATE
[2016-08-25] MEDS ORDERED: HYDROCODONE-APA1 TAB PO (14:37)
--- NOTE | 2016-08-25 16:44 | NUR ---
PT FLUSHED WITH 2000 UNITS IN PORT THAT WAS U8SED TODAY PT REFUSE TO HAVE 2 ND PORT FLUSHED STATED IT WAS DONE IN [facility], [facility] 1999UNIT RETURNED TO [facility]
--- NOTE | 2016-08-25 18:04 | NUR ---
6258 TEACHING DONE WITH PT AND FAMILY ON [facility] SENT WITH SUPPLY
--- NOTE | 2016-08-25 18:07 | NUR ---
1525 C/O OF NAUSEA , ZOFRAN 4 MG IVP SLOW GIVEN
--- NOTE | 2016-08-29 18:58 | OP ---
PATIENT NAME: MANSI ARNOLD MEDICAL RECORD: [id number] :89 LOCATION:[facility] ADMISSION DATE: SURGEON: LOREN NGUYEN MD DATE OF OPERATION: 08/25/2016 PREOPERATIVE DIAGNOSIS: End-stage renal disease, presently catheter dependent for hemodialysis access status post failed kidney transplant. POSTOPERATIVE DIAGNOSIS: End-stage renal disease, presently catheter dependent for hemodialysis access status post failed kidney transplant. OPERATION PERFORMED: Creation of a left upper arm brachial artery to translocated brachial vein arteriovenous fistula. SURGEON: Loren Nguyen MD ANESTHESIA: Regional nerve block and general by B[employer] SHOP FLOORPERSON. REFERRING PHYSICIAN: Beck Lane MD PREOPERATIVE NOTE: Mr. Arnold is a 25-year-old white male patient with end-stage renal disease and failed kidney transplant. He has been catheter dependent now for about 6 months or longer, he needs long-term dialysis access. He has already had one hospitalization with a very severe episode of sepsis from infection of the tunneled catheter. DESCRIPTION OF PROCEDURE: In the operating room, under nerve block and additional general anesthesia, he was prepped and draped in a sterile manner. I used a Symone drain for a proximal venous tourniquet and after nitroglycerin paste was applied to the skin of the arm and upper arm. He was examined with ultrasound and I found the cephalic vein to be very disappointing. There was a very large brachial vein and a moderate sized basilic vein in the arm above the antecubital space. I decided to try to make a basilic vein fistula, probably doing this in 2 stages though possibly one. A hockey-stick shaped incision was made on the medial aspect of the antecubital space and the brachial artery dissected from surrounding structures controlled at the Silastic loops and the median cubital vein draining into the basilic vein was dissected, it was found to be rather small, but slightly more proximally. It was of adequate caliber. It was controlled with atraumatic vascular clamps. It was ligated distally and then shortened and beveled and then flushed with saline and found to have an area of occlusion which then led me to mobilize the brachial artery further proximally and mobilized the basilic vein further proximally and preparing for anastomosis at that higher level. I found again another area of fibrotic stenosis of the basilic vein. I felt then that there was a contraindication to going ahead with a primary basilic vein fistula. The brachial vein which I have seen on ultrasound was indeed a fairly large vein about 8 mm or 9 mm in diameter and appeared to be the dominant venous drainage. There was a smaller accompanying brachial vein, but really just one large, dominant one. I extended my incision cephalad to the axilla and mobilized the brachial vein up to the confluence with the basilic vein. Hemostasis was obtained with ligatures of Vicryl and numerous Hemoclips. The vein was ligated distally and transected and then bevelled and flushed with heparinized saline, topical papaverine was used liberally as well. The vein was pulled through a subcutaneous tunnel, which went slightly lateral to the primary incision and it was anastomosed end-to-side to the brachial artery with running 7-0 Prolene. When the anastomosis was OPERATIVE REPORT [id number] MANSI ARNOLD concluded the vessel loops were released restoring flow first to the fistula and then last to the forearm and hand. Doppler examination demonstrated excellent flow in the new fistula and also excellent forward or normal direction flow in the distal brachial artery. The wound was irrigated with saline and irrigated and infiltrated with 0.25% Marcaine with epinephrine and a 10 mm diameter flat fluted closed suction drain was left in the wound and brought out inferiorly with a trocar through a separate site on the upper forearm. Wound was closed in layers with interrupted 3-0 Vicryl and running intracuticular 4-0 Monocryl. Repeat Doppler examination demonstrated satisfactory Doppler flow in the new fistula. The incision was then dressed and the patient awakened and taken to the recovery room in stable condition. Blood loss during the operation was only about 50 cc, none was replaced intraoperatively. All sponges, instruments and needles were accounted for and no surgical specimen was submitted for histopathology. I believe the patient will insists on going home today even though I might perhaps prefer overnight observation and I will allow him to go home. He will be given a prescription for 30, 10/325 Horace tablets for p.r.n. pain and an appointment to return to see me in my office next week. He will be asked to care for his drain and empty it frequently during the day and keep a diary written log of the volumes that he empties from the drain. TRANSINT:[id number] Voice Confirmation ID: [id number] DOCUMENT ID: [id number] LOREN NGUYEN MD at 1858 CC: LOREN NGUYEN MD and BECK LANE MD [id number] DICTATION DATE: 08/25/16 1426 PHP MYSQL WEB DEVELOPER: 08/25/16 220 [facility] [place] 08/25/16 [id number] [place] [address]
== END 2016-08-25 17:00 | disposition home or self-care (01) ==
LOC: D.OPS 08:03 → D.PAN 08:30 → D.OPS 08:30
PROVIDERS: Surgery
DX: N18.6 End stage renal disease (principal); Z99.2 Dependence on renal dialysis; Z86.14 Personal history of Methicillin resistant Staphylococcus aureus infection; T86.12 Kidney transplant failure

== ENCOUNTER → 2016-12-25 16:51 | Outpatient (CLI) | payer MEDICAID ==
[2016-08-25 08:57] VITALS: BMI 23.9
[2016-12-25 17:30] LABS: BASOPHILS 0.2 % (0-2); EOSINOPHILS 0.2 % (0-7); HEMATOCRIT 21.6 % (42.0-54.0); IMMATURE GRANULOCYTES 0.6 % (0-5); LYMPHOCYTES 15.5 % (15-50); MCH 24.8 pg (26.0-34.0); MCHC 30.1 g/dL (31.0-37.0); MCV 82.4 fL (80.0-100.0); MEAN PLATELET VOLUME 8.7 fL (7.4-10.4); MONOCYTES 9.2 % (2-11); NEUTROPHILS 74.3 % (40-80); RBC 2.62 10x6/uL (4.20-6.10); RDW 19.7 % (11.5-14.5); WBC 10.9 10x3/uL (4.8-10.8)
[2016-12-25 17:39] LABS: APTT 59.1 SECONDS (22.8-39.4); INR 1.27 (0.85-1.17); PROTIME 15.8 SECONDS (11.6-15.0)
[2016-12-25 17:56] LABS: HEMOGLOBIN 6.5 g/dL (13.5-17.5); PLATELET COUNT 347 10x3/uL (130-400)
[2016-12-25 18:02] LABS: ALBUMIN 2.1 g/dL (3.4-5.0); ANION GAP 8.6 mmol/L (8-16); BILIRUBIN - TOTAL 0.4 mg/dL (0.2-1.3); CALCIUM 8.2 mg/dL (8.5-10.1); CARBON DIOXIDE 25.6 mmol/L (21.0-32.0); CREATININE - SERUM 6.9 mg/dL (0.6-1.3); POTASSIUM - SERUM 3.2 mmol/L (3.5-5.1); PROTEIN - SERUM 7.1 g/dL (6.4-8.2)
[2016-12-25 18:22] LABS: C-REACTIVE PROTEIN 17.9 mg/dL (0.0-0.9)
[2016-12-25 18:28] LABS: ERYTHROCYTE SEDIMENTATION RATE 150 mm/hr (0-15)
== END | disposition home or self-care (01) ==
LOC: D.LABREF 16:51
PROVIDERS: Internal Medicine Nephrology
DX: N18.6 End stage renal disease (principal); I61.1 Nontraumatic intracerebral hemorrhage in hemisphere, cortical

== ENCOUNTER → 2017-01-06 17:49 | Outpatient (CLI) | payer MEDICARE ==
[2016-08-25 08:57] VITALS: BMI 23.9
== END | disposition home or self-care (01) ==
LOC: D.OPS 15:00
DX: D64.9 Anemia, unspecified (principal)

== ENCOUNTER 2017-01-08 09:39 | Outpatient (CLI) | payer MEDICARE ==
[~2017-01-08] VITALS: Ht 160 cm; Wt 59.1 kg
[2017-01-08 16:04] VITALS: BP 127/92; Ht 160 cm; Wt 59.1 kg
--- NOTE | 2017-01-08 16:13 | NUR ---
1500 HAVING DIFFICULTY GETTING IV. 2 ATTEMPTS. UNABLE TO USE PICC LINE NURSE PER DR. BURRELL. CALLED RICHARD FREEMAN AND HE STARTED IV 2 STICKS RT A/C GOOD BLOOD RETURN. NO REDNESS OR SWELLING N/S TO BLOOD TUBING.
--- NOTE | 2017-01-08 16:13 | NUR ---
1350 IN ROOM FOR BLOOD TRANSFUSION. EXPLAINED S/S OF BLOOD TRANSFUSION TO WATCH FOR GRANDFATHER AND PATIENT.
--- NOTE | 2017-01-08 16:14 | NUR ---
1525 BLOOD STARTED RT A/C NO S/S OF BLOOD TRANSFUSION. HAVING A CHRONIC COUGH AND STATED HAS BEEN TO MD AND WAS CHECKED FOR PNEUMONIA AND FLUID NO DIAGNOSIS.
--- NOTE | 2017-01-08 16:16 | NUR ---
1550 TOLERATED LUNCH BLOOD INFUSING RT A/C NO S/S OF BLOOD TRANSFUSION NO REDNESS OR SWELLING.
--- NOTE | 2017-01-08 16:16 | NUR ---
1535 BLOOD INFUSING RT A/C NO S/S OF BLOOD REACTIONS NOTED.
--- NOTE | 2017-01-08 17:24 | NUR ---
1700 1ST UNIT BLOOD COMPETED. FLUSHED WITH SALINE.
--- NOTE | 2017-01-08 17:25 | NUR ---
171 2ND UNIT OF BLOOD STARTED WITH NEW BLOOD TUBINHG CHECKED BY 2 R.N. INFUSING VIA RT A/C NO REDNESS OR SWELLING.
--- NOTE | 2017-01-08 17:26 | NUR ---
1725 UP AND VOIDED AND HAD A BM.
--- NOTE | 2017-01-08 19:02 | NUR ---
1730 PULLED ON IV WHEN UP WOULD NOT LET ME IN THE BATHROOM TO ASSESS VITAL SIGNS OR SEE IV SITE. YELLING OUT AND STATING TAKE THIS IV OUT I AM NOT STAYING HERE.
--- NOTE | 2017-01-08 19:06 | NUR ---
3333 PATIENT PULLED OUT IV AND WENT AGAINST MEDICAL ADVICE REFUSED TO STAY AND GET BLOOD. RT ARM ASSESSED AND SOME SWOLLEN. IV CATHETER INTACT. PRESSURE APPLIED AND BLEEDING STOPPED.
--- NOTE | 2017-01-08 19:08 | NUR ---
1800 LEFT WITH FAMILY AMBULATED.
--- NOTE | 2017-01-08 20:47 | NUR ---
1809 DR[address] GUAJARDO NOTIFIED.
== END 2017-01-08 18:00 | disposition home or self-care (01) ==
LOC: D.OPS 09:39 → D.SDCHOLD 09:52 → D.OPS 10:00
DX: D64.9 Anemia, unspecified (principal)

== ENCOUNTER 2017-01-26 08:05 | Outpatient (CLI) | payer MEDICARE ==
[~2017-01-26] VITALS: Ht 160 cm; Wt 61.4 kg
[2017-01-26 08:31] VITALS: Ht 160 cm; Wt 61.4 kg
--- NOTE | 2017-01-26 08:50 | NUR ---
HEMOSPLIT ACCESSED VIA STERILE PROCESS PER PROTOCOL. WILL TRANSFUSE 1 UNIT PRBC PER ORDERS
--- NOTE | 2017-01-26 09:20 | NUR ---
PT REMOVED CENTRAL DRESSING C/O "ITCHING", EXPLAINED THE RISK OF INFECTION WITH REMOVAL OF DRESSING. STATES "I DON'T CARE ITS COMING OFF!" BECAME ANGRY AND RAISED VOICE STATING "I DON'T CARE WHAT IT DOES I'M TAKING IT OFF!" FAMILY AT BEDSIDE. PT AGREED TO GAUZE WITH TAPE OVER HEMOSPLIT. WILL CONTINUE TO MONITOR.
== END 2017-01-26 13:30 ==
LOC: D.OPS 08:05
DX: N18.6 End stage renal disease (principal); D63.1 Anemia in chronic kidney disease

== ENCOUNTER → 2017-02-26 15:56 | Outpatient (CLI) | payer MEDICARE ==
[2017-01-26 08:31] VITALS: BMI 23.9
[2017-02-26 16:21] LABS: BASOPHILS 0.2 % (0-2); EOSINOPHILS 0.5 % (0-7); HEMATOCRIT 25.4 % (42.0-54.0); HEMOGLOBIN 8.1 g/dL (13.5-17.5); IMMATURE GRANULOCYTES 0.8 % (0-5); LYMPHOCYTES 6.6 % (15-50); MCH 27.4 pg (26.0-34.0); MCHC 31.9 g/dL (31.0-37.0); MCV 85.8 fL (80.0-100.0); MEAN PLATELET VOLUME 9.9 fL (7.4-10.4); NEUTROPHILS 80.9 % (40-80); RBC 2.96 10x6/uL (4.20-6.10); RDW 17.9 % (11.5-14.5); WBC 12.1 10x3/uL (4.8-10.8)
[2017-02-26 16:26] LABS: PLATELET COUNT 176 10x3/uL (130-400)
[2017-02-26 16:34] LABS: % SATURATION 7 % (15-55); IRON 11 ug/dl (35-150); TOTAL IRON BIND CAPACITY 139 ug/dl (260-445); UNSAT IRON BIND CAPACITY 128 ug/dl (150-375)
[2017-02-26 16:36] LABS: MAGNESIUM - SERUM 1.5 mg/dL (1.8-2.4)
[2017-02-26 16:38] LABS: ANION GAP 20.6 mmol/L (8-16); CALCIUM 8.6 mg/dL (8.5-10.1); CARBON DIOXIDE 20.4 mmol/L (21.0-32.0); CREATININE - SERUM 7.2 mg/dL (0.6-1.3)
[2017-02-26 16:39] LABS: BILIRUBIN - TOTAL 0.9 mg/dL (0.2-1.3); PROTEIN - SERUM 6.9 g/dL (6.4-8.2)
[2017-02-27 09:12] LABS: FOLATE (FOLIC ACID) - SERUM >20.0 ng/mL (>3.0)
== END | disposition home or self-care (01) ==
LOC: D.LABREF 15:56
PROVIDERS: Family Medicine
DX: J01.90 Acute sinusitis, unspecified (principal); R00.0 Tachycardia, unspecified